=== PATIENT | female | born 1965 | race African-American/Black ===

== ENCOUNTER 2017-11-08 15:09 | Inpatient (IN) ==
[2017-11-08] MEDS ORDERED: ASPIRIN 325 MG TABLET PO STA (17:06)
[2017-11-08 17:43] LABS: Basophils % 0.4 % (0.0-0.8); Eosinophils # 0.1 10*3/uL (0.0-0.87); Eosinophils % 1.6 % (0.00-10.9); Hematocrit 39.9 VOL% (35.7-47.0); Hemoglobin 12.1 GM/DL (12.0-16.0); Immature Granulocytes % 0.2 %; Immature Granulocytes Absolute 0.01 #; Lymphocytes # 1.5 10*3/uL (1.4-4.0); Mean Corpuscular HGB Conc 30.3 GM/DL (32-36); Mean Corpuscular Hemoglobin 26 PG (27-34); Mean Corpuscular Volume 85.4 FL (87-102); Mean Platelet Volume 10.2 FL (9.6-12.0); Monocytes # 0.3 10*3/uL (0.11-0.8); Monocytes % 5.6 % (1.7-12.7); Neutrophils % 61.2 % (38.7-73.9); Platelet Count 382 T/CUMM (130-400); Red Blood Count 4.67 MC/CUMM (3.8-5.5); Red Cell Distribution Width 14.8 % (9.3-17.3)
[2017-11-08 18:08] LABS: Alanine Aminotransferase 17 U/L (13-56); Albumin 3.6 G/DL (3.4-5.0); Alkaline Phosphatase 151 U/L (45-117); Aspartate Amino Transferase 26 U/L (0-37); Bilirubin,Total < 0.39 MG/DL (0.2-1.0); Blood Urea Nitrogen 8 MG/DL (7-18); Calcium 10.2 MG/DL (8.5-10.1); Glucose 181 MG/DL (74-106); Osmolality,Calculated 281.4 MOS/KG (273-304); Sodium 140 MMOL/L (136-145); Total Protein 6.9 G/DL (6.4-8.3); Troponin I Only < 0.015 NG/ML (0.00-0.045)
[2017-11-08 18:09] LABS: PT Patient Result 10.4 SECS; Partial Thromboplastin Time 25.6 SECS (0-40)
[2017-11-08] MEDS ORDERED: ASPIRIN 325 MG TABLET ONE (18:12)
[2017-11-08] MEDS ORDERED: LABETALOL 20 MG/4 ML SYRINGE IV PRN (20:15)
[2017-11-08] MEDS ORDERED: ENOXAPARIN 40 MG/0.4 ML SYRINGE SUBCUT SCH (21:00)
[2017-11-08] MEDS: ATORVASTATIN 80 MG TABLET PO SCH (21:09)
[2017-11-09 05:11] LABS: Basophils % 0.2 % (0.0-0.8); Eosinophils # 0.1 10*3/uL (0.0-0.87); Eosinophils % 2.2 % (0.00-10.9); Hematocrit 37.7 VOL% (35.7-47.0); Hemoglobin 12.1 GM/DL (12.0-16.0); Immature Granulocytes % 0.4 %; Immature Granulocytes Absolute 0.02 #; Lymphocytes % 43.8 % (21.3-54.2); Mean Corpuscular HGB Conc 32.1 GM/DL (32-36); Mean Corpuscular Hemoglobin 27 PG (27-34); Mean Corpuscular Volume 82.7 FL (87-102); Mean Platelet Volume 10.4 FL (9.6-12.0); Monocytes # 0.3 10*3/uL (0.11-0.8); Monocytes % 6.7 % (1.7-12.7); Neutrophils # 2.2 10*3/uL (1.4-7.4); Neutrophils % 46.7 % (38.7-73.9); Platelet Count 377 T/CUMM (130-400); Red Blood Count 4.56 MC/CUMM (3.8-5.5); Red Cell Distribution Width 14.8 % (9.3-17.3); White Blood Count 4.6 T/CUMM (4-12)
[2017-11-09 06:07] LABS: Calcium 9.5 MG/DL (8.5-10.1); Osmolality,Calculated 285.1 MOS/KG (273-304); Potassium 3.8 MMOL/L (3.5-5.1)
[2017-11-09 06:08] LABS: Risk Ratio 3.32; VLDL CHOLESTEROL 26.8 MG/DL
[2017-11-09] MEDS ORDERED: ASPIRIN 300 MG SUPP RECTAL SCH (09:00)
[2017-11-09] MEDS ORDERED: ASPIRIN 325 MG TABLET PO SCH (11:00)
[2017-11-09] MEDS ORDERED: CLOPIDOGREL 75 MG TABLET PO SCH (11:00)
[2017-11-09] MEDS ORDERED: GLUCAGON 1 MG VIAL IM PRN (15:45)
[2017-11-09] MEDS ORDERED: DEXTROSE 50% 25 GM/50 ML VIAL IV PRN (15:45)
[2017-11-09] MEDS: INSULIN LISPRO 100 UNIT/ML SUBCUT SCH (17:34)
[2017-11-09] MEDS ORDERED: ONDANSETRON 4 MG/2 ML VIAL IV ONE (19:30)
[2017-11-09] MEDS ORDERED: ONDANSETRON 4 MG/2 ML VIAL ONE (19:32)
[2017-11-09] MEDS ORDERED: PROMETHAZINE 25 MG/1 ML VIAL ONE (19:48)
[2017-11-09] MEDS ORDERED: PROMETHAZINE 25 MG/1 ML VIAL IM ONE (19:49)
[2017-11-09] MEDS: ONDANSETRON 4 MG/2 ML VIAL IV PRN (20:20)
[2017-11-09] MEDS ORDERED: APIXABAN 5 MG TABLET PO SCH ×2 (21:00)
[2017-11-10] MEDS: ATORVASTATIN 80 MG TABLET PO SCH ×2 (01:33→21:50)
[2017-11-10] MEDS: APIXABAN 5 MG TABLET PO SCH (01:33)
[2017-11-10] MEDS: INSULIN LISPRO 100 UNIT/ML SUBCUT SCH ×5 (01:35→22:00)
[2017-11-10] MEDS: HEPARIN DRIP 25,000 UNITS/500 ML PREMIX IV SCH (03:58)
[2017-11-10] MEDS ORDERED: hydrALAZINE 20 MG/1 ML VIAL IV ONE (04:00)
[2017-11-10] MEDS ORDERED: ceFAZolin 1,000 MG in SYRINGE 1 EACH IV ONE (06:30)
[2017-11-10] MEDS: ONDANSETRON 4 MG/2 ML VIAL IV PRN (06:36)
[2017-11-10 07:49] LABS: Basophils % 0.2 % (0.0-0.8); Hematocrit 37.9 VOL% (35.7-47.0); Hemoglobin 12.1 GM/DL (12.0-16.0); Immature Granulocytes % 0.3 %; Immature Granulocytes Absolute 0.02 #; Lymphocytes # 0.9 10*3/uL (1.4-4.0); Lymphocytes % 15.2 % (21.3-54.2); Mean Corpuscular HGB Conc 31.9 GM/DL (32-36); Mean Corpuscular Hemoglobin 26 PG (27-34); Mean Corpuscular Volume 82.8 FL (87-102); Mean Platelet Volume 9.9 FL (9.6-12.0); Monocytes # 0.2 10*3/uL (0.11-0.8); Monocytes % 3.3 % (1.7-12.7); Neutrophils # 4.9 10*3/uL (1.4-7.4); Platelet Count 370 T/CUMM (130-400); Red Blood Count 4.58 MC/CUMM (3.8-5.5); Red Cell Distribution Width 15.2 % (9.3-17.3); White Blood Count 6.1 T/CUMM (4-12)
[2017-11-10 08:13] LABS: Calcium 10.3 MG/DL (8.5-10.1); Osmolality,Calculated 290.1 MOS/KG (273-304); Potassium 4.1 MMOL/L (3.5-5.1)
[2017-11-10] MEDS ORDERED: METOPROLOL SUCCINATE XL 50 MG TABLET PO SCH (09:00)
[2017-11-10] MEDS: ASPIRIN EC 81 MG TABLET PO SCH (10:57)
[2017-11-10] MEDS ORDERED: PROMETHAZINE 25 MG/1 ML VIAL IM PRN (14:10)
[2017-11-10 15:51] LABS: Apearance,Urine Slightly Hazy (Clear); Bacteria,Urine Many /HPF (Few); Bilirubin,Urine Negative (Negative); Blood, Urine Negative (Negative); Glucose,Urine (UA) >=500 mg/dL (Negative); Ketones,Urine 5 mg/dL (Negative); Mucus,Urine Occasional /LPF (Occasional); Nitrite,Urine Negative (Negative); Protein,Urine 30 MG/DL; RBC,Urine 3 /HPF (0-4); Squamous Epithelial Cell,Urine Occasional /HPF (0-10); Urine Color Yellow (Yellow); Urine Specific Gravity 1.039 (1.001-1.035); WBC,Urine 2 /HPF (0-6)
[2017-11-10] MEDS: SODIUM CHLORIDE 0.9% 1,000 ML IV SCH (19:45)
[2017-11-10] MEDS: PANTOPRAZOLE 40 MG VIAL IV SCH (21:44)
[2017-11-11 01:22] LABS: PT Patient Result 10.3 SECS; Partial Thromboplastin Time 27.5 SECS (0-40)
[2017-11-11 01:38] LABS: Basophils % 0.1 % (0.0-0.8); Eosinophils % 0.1 % (0.00-10.9); Hemoglobin 11.2 GM/DL (12.0-16.0); Immature Granulocytes % 0.4 %; Immature Granulocytes Absolute 0.03 #; Lymphocytes # 1.9 10*3/uL (1.4-4.0); Lymphocytes % 27.8 % (21.3-54.2); Mean Corpuscular HGB Conc 30.3 GM/DL (32-36); Mean Corpuscular Hemoglobin 26 PG (27-34); Mean Corpuscular Volume 85.5 FL (87-102); Mean Platelet Volume 10.8 FL (9.6-12.0); Monocytes # 0.4 10*3/uL (0.11-0.8); Monocytes % 6.3 % (1.7-12.7); Neutrophils # 4.6 10*3/uL (1.4-7.4); Neutrophils % 65.3 % (38.7-73.9); Platelet Count 232 T/CUMM (130-400); Red Blood Count 4.33 MC/CUMM (3.8-5.5); Red Cell Distribution Width 15.2 % (9.3-17.3)
[2017-11-11 01:39] LABS: Calcium 10.3 MG/DL (8.5-10.1); Potassium 4.3 MMOL/L (3.5-5.1)
[2017-11-11 01:58] LABS: Prealbumin 26.1 MG/DL (20-40)
[2017-11-11] MEDS: HEPARIN DRIP 25,000 UNITS/500 ML PREMIX IV SCH ×2 (03:36→17:50)
[2017-11-11] MEDS ORDERED: ceFAZolin 1,000 MG in SYRINGE 1 EACH IV ONE (06:30)
[2017-11-11] MEDS ORDERED: PANTOPRAZOLE 40 MG TABLET PO SCH (07:00)
[2017-11-11] MEDS: SODIUM CHLORIDE 0.9% 1,000 ML IV SCH ×2 (07:53→18:28)
[2017-11-11] MEDS: INSULIN LISPRO 100 UNIT/ML SUBCUT SCH ×4 (08:00→20:28)
[2017-11-11] MEDS: PANTOPRAZOLE 40 MG VIAL IV SCH ×2 (08:51→20:24)
[2017-11-11] MEDS: ACETAMINOPHEN 325 MG TABLET PO PRN (08:51)
[2017-11-11] MEDS: ASPIRIN EC 81 MG TABLET PO SCH (08:51)
[2017-11-11] MEDS: ATORVASTATIN 80 MG TABLET PO SCH (20:24)
[2017-11-12] MEDS ORDERED: HEPARIN 5,000 UNIT/1 ML VIAL IV PRN (01:27)
[2017-11-12] MEDS: ASPIRIN EC 81 MG TABLET PO SCH (08:26)
[2017-11-12] MEDS: PANTOPRAZOLE 40 MG VIAL IV SCH (08:26)
[2017-11-12] MEDS: INSULIN LISPRO 100 UNIT/ML SUBCUT SCH ×4 (08:26→21:03)
[2017-11-12] MEDS: HEPARIN DRIP 25,000 UNITS/500 ML PREMIX IV SCH ×2 (13:21→22:13)
[2017-11-12] MEDS: SODIUM CHLORIDE 0.9% 1,000 ML IV SCH ×2 (15:08→19:44)
[2017-11-12] MEDS: ACETAMINOPHEN 325 MG TABLET PO PRN (21:02)
[2017-11-12] MEDS: POLYETHYLENE GLYCOL POWDER 17 GM PACK PO SCH (21:02)
[2017-11-12] MEDS: ATORVASTATIN 80 MG TABLET PO SCH (21:02)
[2017-11-12] MEDS: PANTOPRAZOLE 40 MG TABLET PO SCH (21:02)
[2017-11-13] MEDS: POLYETHYLENE GLYCOL POWDER 17 GM PACK PO SCH ×2 (08:03→20:58)
[2017-11-13] MEDS: INSULIN LISPRO 100 UNIT/ML SUBCUT SCH ×4 (08:04→20:58)
[2017-11-13] MEDS: PANTOPRAZOLE 40 MG TABLET PO SCH ×2 (08:04→20:58)
[2017-11-13] MEDS: ASPIRIN EC 81 MG TABLET PO SCH (08:04)
[2017-11-13] MEDS: HEPARIN DRIP 25,000 UNITS/500 ML PREMIX IV SCH ×2 (08:48→22:34)
[2017-11-13] MEDS: SODIUM CHLORIDE 0.9% 1,000 ML IV SCH (18:26)
[2017-11-13] MEDS: ATORVASTATIN 80 MG TABLET PO SCH (20:58)
[2017-11-14 05:51] LABS: Calcium 9.6 MG/DL (8.5-10.1); Potassium 3.9 MMOL/L (3.5-5.1)
[2017-11-14] MEDS ORDERED: ceFAZolin 1,000 MG in SYRINGE 1 EACH IV ONE (06:30)
[2017-11-14] MEDS ORDERED: LIDOCAINE 2%/EPI 20 ML VIAL ONE (07:28)
[2017-11-14] MEDS ORDERED: TISSUE ADHESIVE 1 EACH APPLICATOR TOP ONE (07:28)
[2017-11-14] MEDS ORDERED: ceFAZolin 1,000 MG VIAL ONE (07:29)
[2017-11-14] MEDS: SODIUM CHLORIDE 0.9% 1,000 ML IV SCH ×2 (08:47→21:07)
[2017-11-14] MEDS: INSULIN LISPRO 100 UNIT/ML SUBCUT SCH ×4 (09:37→20:59)
[2017-11-14] MEDS: POLYETHYLENE GLYCOL POWDER 17 GM PACK PO SCH ×2 (10:26→21:04)
[2017-11-14] MEDS: PANTOPRAZOLE 40 MG TABLET PO SCH ×2 (10:26→21:04)
[2017-11-14] MEDS: ASPIRIN EC 81 MG TABLET PO SCH (10:26)
[2017-11-14] MEDS: APIXABAN 5 MG TABLET PO SCH ×2 (13:16→21:04)
[2017-11-14] MEDS ORDERED: PROPOFOL 200 MG/20 ML VIAL IV ONE (14:03)
[2017-11-14] MEDS: ATORVASTATIN 80 MG TABLET PO SCH (21:04)
[2017-11-15] MEDS: SODIUM CHLORIDE 0.9% 1,000 ML IV SCH ×2 (06:20→15:41)
[2017-11-15] MEDS: PANTOPRAZOLE 40 MG TABLET PO SCH (09:31)
[2017-11-15] MEDS: INSULIN LISPRO 100 UNIT/ML SUBCUT SCH ×3 (09:32→16:23)
[2017-11-15] MEDS: ASPIRIN EC 81 MG TABLET PO SCH (09:32)
[2017-11-15] MEDS: APIXABAN 5 MG TABLET PO SCH (09:32)
[2017-11-15] MEDS: POLYETHYLENE GLYCOL POWDER 17 GM PACK PO SCH (09:36)
[2017-11-15 16:52] VITALS: BP 145/72
== END 2017-11-15 17:20 | DRG 45 ==
LOC: N.ED 15:09 → N.EDINP 18:11 → SUATTDRO 18:11 → N.TELEN 19:46
PROVIDERS: ADMIT Internal Medicine; ATTEND Internal Medicine Geriatric Medicine

== ENCOUNTER 2018-08-11 07:22 | Observation (INO) ==
[2018-08-11] MEDS ORDERED: SODIUM CHLORIDE 0.9% 500 ML IV STA (08:16)
[2018-08-11 08:36] LABS: Basophils % 0.3 % (0.0-0.8); Eosinophils # 0.1 10*3/uL (0.0-0.87); Eosinophils % 1.1 % (0.00-10.9); Hematocrit 41.8 VOL% (35.7-47.0); Hemoglobin 13.2 GM/DL (12.0-16.0); Immature Granulocytes % 0.5 %; Immature Granulocytes Absolute 0.03 #; Lymphocytes # 1.4 10*3/uL (1.4-4.0); Lymphocytes % 21.5 % (21.3-54.2); Mean Corpuscular HGB Conc 31.6 GM/DL (32-36); Mean Corpuscular Hemoglobin 26 PG (27-34); Mean Corpuscular Volume 81.8 FL (87-102); Mean Platelet Volume 10.4 FL (9.6-12.0); Monocytes # 0.2 10*3/uL (0.11-0.8); Monocytes % 3.7 % (1.7-12.7); Neutrophils # 4.7 10*3/uL (1.4-7.4); Neutrophils % 72.9 % (38.7-73.9); Platelet Count 338 T/CUMM (130-400); Red Blood Count 5.11 MC/CUMM (3.8-5.5); Red Cell Distribution Width 14.7 % (9.3-17.3); White Blood Count 6.4 T/CUMM (4-12)
[2018-08-11 08:57] LABS: Alanine Aminotransferase 110 U/L (13-56); Albumin 3.8 G/DL (3.4-5.0); Alkaline Phosphatase 197 U/L (45-117); Aspartate Amino Transferase 88 U/L (0-37); Bilirubin,Total < 0.39 MG/DL (0.2-1.0); Blood Urea Nitrogen 9 MG/DL (7-18); Calcium 10.4 MG/DL (8.5-10.1); Glucose 468 MG/DL (74-106); Potassium 3.6 MMOL/L (3.5-5.1); Sodium 136 MMOL/L (136-145); Total Protein 7.6 G/DL (6.4-8.3)
[2018-08-11 09:06] LABS: Apearance,Urine CLEAR (Clear); Bacteria,Urine Occasional /HPF (Few); Bilirubin,Urine Negative (Negative); Blood, Urine Negative (Negative); Glucose,Urine (UA) >=500 mg/dL (Negative); Ketones,Urine Negative (Negative); Nitrite,Urine Negative (Negative); Protein,Urine Negative; RBC,Urine 1 /HPF (0-4); Squamous Epithelial Cell,Urine Occasional /HPF (0-10); Urine Color Colorless (Yellow); Urine Specific Gravity 1.026 (1.001-1.035); Urine Urobilinogen < 2.0 EU/DL (0.2-1.0); WBC,Urine 2 /HPF (0-6)
[2018-08-11] MEDS ORDERED: INSULIN LISPRO 100 UNIT/ML SUBCUT STA (11:01)
[2018-08-11] MEDS ORDERED: ACETAMINOPHEN 325 MG TABLET PO PRN (12:28)
[2018-08-11] MEDS ORDERED: ONDANSETRON 4 MG/2 ML VIAL IV PRN (12:28)
[2018-08-11] MEDS ORDERED: GLUCAGON 1 MG VIAL IM PRN (12:28)
[2018-08-11] MEDS ORDERED: DEXTROSE 50% 25 GM/50 ML VIAL IV PRN ×2 (12:28)
[2018-08-11] MEDS ORDERED: INFLUENZA VIRUS VACCINE 0.5 ML SYRINGE IM ONE (14:26)
[2018-08-11] MEDS: SODIUM CHLORIDE 0.45% 1,000 ML IV SCH (14:49)
[2018-08-11] MEDS: metFORMIN 500 MG TABLET PO SCH (17:27)
[2018-08-11] MEDS: INSULIN LISPRO 100 UNIT/ML SUBCUT SCH ×2 (17:27→21:22)
[2018-08-11] MEDS ORDERED: ENOXAPARIN 40 MG/0.4 ML SYRINGE SUBCUT SCH (21:00)
[2018-08-11] MEDS: INSULIN GLARGINE 100 UNIT/ML SUBCUT SCH (21:22)
[2018-08-11] MEDS: DOCUSATE SODIUM 100 MG CAPSULE PO SCH (21:22)
[2018-08-12] MEDS: SODIUM CHLORIDE 0.45% 1,000 ML IV SCH ×2 (00:35→09:23)
[2018-08-12 05:49] LABS: Basophils % 0.6 % (0.0-0.8); Eosinophils # 0.1 10*3/uL (0.0-0.87); Eosinophils % 2.3 % (0.00-10.9); Hemoglobin 11.6 GM/DL (12.0-16.0); Immature Granulocytes % 0.2 %; Immature Granulocytes Absolute 0.01 #; Lymphocytes # 2.4 10*3/uL (1.4-4.0); Lymphocytes % 45.8 % (21.3-54.2); Mean Corpuscular HGB Conc 31.4 GM/DL (32-36); Mean Corpuscular Hemoglobin 26 PG (27-34); Mean Corpuscular Volume 82.4 FL (87-102); Mean Platelet Volume 11.3 FL (9.6-12.0); Monocytes # 0.4 10*3/uL (0.11-0.8); Monocytes % 8.1 % (1.7-12.7); Neutrophils # 2.3 10*3/uL (1.4-7.4); Platelet Count 334 T/CUMM (130-400); Red Blood Count 4.49 MC/CUMM (3.8-5.5); Red Cell Distribution Width 15.3 % (9.3-17.3); White Blood Count 5.3 T/CUMM (4-12)
[2018-08-12 06:19] LABS: Albumin 3.2 G/DL (3.4-5.0); Bilirubin,Direct 0.11 MG/DL (0.0-0.20); Bilirubin,Indirect 0.4 MG/DL (0.0-1.0); Bilirubin,Total 0.5 MG/DL (0.2-1.0); Total Protein 6.7 G/DL (6.4-8.3)
[2018-08-12 06:20] LABS: Risk Ratio 5.42; VLDL CHOLESTEROL 35.4 MG/DL
[2018-08-12 06:26] LABS: Albumin 3.1 G/DL (3.4-5.0); Bilirubin,Total 0.4 MG/DL (0.2-1.0); Calcium 9.4 MG/DL (8.5-10.1); Osmolality,Calculated 281.3 MOS/KG (273-304); Potassium 3.1 MMOL/L (3.5-5.1); Thyroid Stimulating Hormone 3.49 uIU/ml (0.358-3.74); Total Protein 6.5 G/DL (6.4-8.3)
[2018-08-12] MEDS ORDERED: amLODIPine 5 MG TABLET PO SCH (09:00)
[2018-08-12] MEDS ORDERED: TRIAMTERENE/HCTZ 37.5-25 MG TABLET PO SCH (09:00)
[2018-08-12] MEDS ORDERED: ASPIRIN EC 81 MG TABLET PO SCH (09:00)
[2018-08-12] MEDS ORDERED: CLOPIDOGREL 75 MG TABLET PO SCH (09:00)
[2018-08-12] MEDS ORDERED: METOPROLOL SUCCINATE XL 50 MG TABLET PO SCH (09:00)
[2018-08-12] MEDS ORDERED: PANTOPRAZOLE 40 MG TABLET PO SCH (09:00)
[2018-08-12] MEDS: DOCUSATE SODIUM 100 MG CAPSULE PO SCH (09:24)
[2018-08-12] MEDS: metFORMIN 500 MG TABLET PO SCH (09:31)
[2018-08-12] MEDS: INSULIN GLARGINE 100 UNIT/ML SUBCUT SCH (09:31)
[2018-08-12] MEDS: INSULIN LISPRO 100 UNIT/ML SUBCUT SCH ×2 (09:31→12:12)
[2018-08-12] MEDS ORDERED: POTASSIUM CHLORIDE 20 MEQ TABLET PO ONE (09:43)
[2018-08-12 12:39] VITALS: BP 142/94
[2018-08-13] MEDS ORDERED: POTASSIUM CHLORIDE 20 MEQ TABLET PO SCH (09:00)
== END 2018-08-12 14:18 | disposition home or self-care (01) ==
LOC: N.EDINP 07:22 → N.ED 07:22 → N.2E 13:53
PROVIDERS: ADMIT Family Medicine; ATTEND Family Medicine